=== PATIENT | female | born 1985 | race Caucasian/White ===

== ENCOUNTER 2016-08-07 15:57 | Outpatient (CLI) | payer BC ==
[~2016-08-07] VITALS: Ht 167.6 cm; Wt 110.5 kg
[~2016-08-07 15:57] MED LIST: ATOMOXETINE PO; CEFTIN250 MG PO; CEPHALEXIN250 M1; CHANTIX0.5 MG PO; CLEOCIN HCL300 MG PO; LEXAPRO20 MG PO; LORTAB 5/500 501 TAB PO; NASONEX SPRAY17 GM NAS; PERCOCET 325 MG1 TA2 PO; PRENATAL VITAMI1 TAB PO; PYRIDIUM 100MG100 MG PO
[2016-08-07 16:37] VITALS: BP 126/72; PULSE 84; TEMP 98
[2016-08-07] MEDS ORDERED: PRENATAL1 TA7 PO (16:45)
[2016-08-07] MEDS ORDERED: TYLENOL PM EXTR1 TA1 PO (16:46)
[2016-08-07 17:05] VITALS: BP 127/73; PULSE 83
== END 2016-08-07 17:20 | disposition home or self-care (01) ==
LOC: LDRO 15:57
DX: O26.893 Other specified pregnancy related conditions, third trimester (principal); M54.89 Other dorsalgia; Z3A.30 30 weeks gestation of pregnancy; Z87.891 Personal history of nicotine dependence

== ENCOUNTER 2016-08-12 19:38 | Outpatient (CLI) | payer BC ==
[~2016-08-12] VITALS: Ht 167.6 cm; Wt 110.5 kg
[~2016-08-12 19:38] MED LIST changes: +PRENATAL1 TA7 PO; +TYLENOL PM EXTR1 TA1 PO
[2016-08-12 20:01] VITALS: BP 110/70; PULSE 80; TEMP 98
[2016-08-12 20:30] VITALS: BP 110/70; PULSE 80; TEMP 98
== END 2016-08-12 21:30 | disposition home or self-care (01) ==
LOC: LDRO 19:38
DX: O36.8130 Decreased fetal movements, third trimester, not applicable or unspecified (principal); Z3A.29 29 weeks gestation of pregnancy; Z87.891 Personal history of nicotine dependence

== ENCOUNTER 2016-09-01 09:23 | Outpatient (RCR) | payer BC | END 2016-09-13 15:06 | disposition home or self-care (01) | LOC: MKS.ESL.PT 09:23 | DX: M54.5 Low back pain (principal) ==

== ENCOUNTER 2016-09-21 14:14 | Inpatient (IN) | payer BC ==
[~2016-09-21] VITALS: Ht 167.6 cm; Wt 120.9 kg
[2016-10-23] VITALS (29 sets, daily range): BP systolic 82–142; BP diastolic 44–111; PULSE 68–96; TEMP 97.9–98.7
[2016-10-23 08:17] LABS: BASO # 0.1 (0.0-0.2); BASO % 0.5 % (0.0-2.0); EOS # 0.1 (0.0-0.7); EOS % 1.1 % (0-4.0); GRAN # 7.3 (1.4-6.5); GRAN % 69.3 % (42.2-75.2); HEMOGLOBIN 12.2 g/dl (12.5-16.0); LYMPH # 2.5 (1.2-3.4); LYMPH % 23.7 % (20.0-51.0); MEAN CELL VOLUME 87 fl (80.0-100.0); MEAN CORPUSCULAR HEMOGLOBIN 29 pg (27.0-31.0); MEAN CORPUSCULAR HGB CONC 33 g/dl (33.0-37.0); MEAN PLATELET VOLUME 9.8 fl (7.4-10.4); MONO # 0.5 (0.1-0.6); MONO % 4.8 % (1.7-9.3); PLATELET COUNT 323 K/mm3 (130-400); RED BLOOD COUNT 4.18 M/mm3 (4.10-5.30); REDCELL DISTRIBUTION WIDTH-CV 13.8 % (11.5-14.5); WHITE BLOOD COUNT 10.5 K/mm3 (4.8-10.8)
[2016-10-23 08:27] LABS: HEMATOCRIT 36.5 % (37.0-47.0)
[2016-10-24 01:45] VITALS: BP 121/73; PULSE 79; TEMP 97.3
[2016-10-24 09:00] VITALS: BP 121/68; PULSE 76; TEMP 97.8
[2016-10-24] MEDS ORDERED: PERCOCET 325 MG1 TA2 PO (11:58)
[2016-10-24] MEDS ORDERED: IBU800 M1 PO (11:58)
[2016-10-24] MEDS ORDERED: LEXAPRO 10MG10 MG PO (11:58)
== END 2016-10-24 14:40 | disposition home or self-care (01) | DRG 775 ==
LOC: EDSTATUS 10-16 11:13 → LDRO 10-16 14:14 → OB 10-23 07:10 → LDR 10-23 07:10 → OB 10-23 14:15
PROVIDERS: Obstetrics & Gynecology
PROC: 10D07Z6 Extraction of Products of Conception, Vacuum, Via Natural or Artificial Opening (ICD-10-PCS; principal; 2016-10-23)
PROC: 0KQM0ZZ Repair Perineum Muscle, Open Approach (ICD-10-PCS; 2016-10-23)
DX: O76 Abnormality in fetal heart rate and rhythm complicating labor and delivery (principal); O70.1 Second degree perineal laceration during delivery; Z3A.39 39 weeks gestation of pregnancy; Z37.0 Single live birth
CPT/HCPCS: J2590; J2795; J7120

== ENCOUNTER 2016-10-18 21:41 | Outpatient (CLI) | payer BC ==
[~2016-10-18] VITALS: Ht 167.6 cm; Wt 120.9 kg
[2016-10-18 21:55] VITALS: BP 117/72; PULSE 90; TEMP 97.9
== END 2016-10-18 23:25 | disposition home or self-care (01) ==
LOC: LDRO 21:41
DX: O62.9 Abnormality of forces of labor, unspecified (principal); Z3A.39 39 weeks gestation of pregnancy

== ENCOUNTER 2016-10-29 18:15 | Outpatient (CLI) | payer BC ==
[2016-10-29] VITALS (11 sets, daily range): BP systolic 120–155; BP diastolic 66–86; PULSE 58–71; TEMP 98
[~2016-10-29] VITALS: Ht 167.6 cm; Wt 111.4 kg
[~2016-10-29 18:15] MED LIST changes: +IBU800 M1 PO; +LEXAPRO 10MG10 MG PO
[2016-10-29] MEDS ORDERED: TYLENOL 500MG500 MG PO (19:14)
[2016-10-29 20:26] LABS: PH 6 (5-8); SQUAMOUS EPITHELIAL None Seen /hpf; URINE APPEARANCE Clear; URINE BACTERIA None Seen /hpf; URINE BILIRUBIN Negative (NEGATIVE); URINE BLOOD Negative (NEGATIVE); URINE COLOR Straw; URINE GLUCOSE Negative (NEGATIVE); URINE KETONE Negative (NEGATIVE); URINE RBC 0-2 /hpf; URINE UROBILINOGEN Negative (NEGATIVE); URINE WBC 0-2 /hpf
[2016-10-29 20:27] LABS: BASO # 0.1 (0.0-0.2); BASO % 0.6 % (0.0-2.0); EOS # 0.4 (0.0-0.7); EOS % 4.5 % (0-4.0); GRAN # 5.1 (1.4-6.5); GRAN % 53.7 % (42.2-75.2); LYMPH # 3.3 (1.2-3.4); LYMPH % 35.3 % (20.0-51.0); MEAN CELL VOLUME 86 fl (80.0-100.0); MEAN CORPUSCULAR HGB CONC 34 g/dl (33.0-37.0); MONO # 0.5 (0.1-0.6); MONO % 5.6 % (1.7-9.3); PLATELET COUNT 418 K/mm3 (130-400); RED BLOOD COUNT 4.07 M/mm3 (4.10-5.30); REDCELL DISTRIBUTION WIDTH-CV 13.2 % (11.5-14.5); WHITE BLOOD COUNT 9.4 K/mm3 (4.8-10.8)
[2016-10-29 20:29] LABS: HEMATOCRIT 35.1 % (37.0-47.0); HEMOGLOBIN 11.8 g/dl (12.5-16.0); MEAN CORPUSCULAR HEMOGLOBIN 29 pg (27.0-31.0)
[2016-10-29 20:39] LABS: ADJUSTED CALCIUM 9.5 mg/dL (8.4-10.2); ALBUMIN 3.7 gm/dL (3.5-5.0); BILIRUBIN,TOTAL 0.4 mg/dL (0.0-1.0); CALCIUM 9.3 mg/dL (8.4-10.2); CREATININE, serum 0.61 mg/dL (0.52-1.25); POTASSIUM 3.9 mmol/L (3.4-5.0); TOTAL PROTEIN 6.8 gm/dL (6.4-8.2)
== END 2016-10-29 21:20 | disposition home or self-care (01) ==
LOC: LDRO 18:15 → COL.ER 18:15 → EDSTATUS 19:00 → LDRO 21:20
PROVIDERS: Obstetrics & Gynecology
DX: O89.4 Spinal and epidural anesthesia-induced headache during the puerperium (principal)

== ENCOUNTER → 2016-11-17 | Outpatient (CLI) | payer BC ==
[~2016-11-17] MED LIST changes: +TYLENOL 500MG500 MG PO
== END ==
LOC: OLC 09:19
DX: Z39.1 Encounter for care and examination of lactating mother (principal); Z71.89 Other specified counseling

== ENCOUNTER → 2023-05-16 | Outpatient (CLI) | payer BC | LOC: MC.RAD 12:48 | DX: Z12.31 Encounter for screening mammogram for malignant neoplasm of breast (principal) ==